=== PATIENT | male | born 1990 | race African-American/Black ===

== ENCOUNTER 2023-04-15 17:50 | Observation (INO) | payer OTHER ==
[2023-04-15 18:06] VITALS: BMI 50.8
[2023-04-15 19:33] LABS: BASO % 0.3 % (0-2.0); EOS % 2.5 % (0-4.5); HEMATOCRIT 46.4 % (35.4-49); HEMOGLOBIN 15.4 GM/dL (11.7-16.9); MCH 29.5 pg (25.7-33.7); MCHC 33.3 g/dl (32.0-35.9); MEAN CELL VOLUME 88.6 fl (80-96); MEAN PLT VOLUME 10.1 fl (7.5-11.1); NEUT % 66.2 % (42.8-82.8); PLATELET COUNT 273 10^3/uL (134-434); RBC 5.24 M/mm3 (4.00-5.60); RDW 13.1 % (11.9-15.9); WHITE BLOOD COUNT 6.5 K/mm3 (4.0-10.0)
[2023-04-15 19:45] LABS: INR 1.16 (0.83-1.09); PROTHROMBIN TIME (PATIENT) 13.4 SEC (9.7-13.0)
[2023-04-15 19:47] LABS: ACTIVATED PTT 34.7 SECONDS (25.2-36.5)
[2023-04-15 19:55] LABS: POTASSIUM 4.1 mmol/L (3.5-5.1)
[2023-04-15 19:57] LABS: CALCIUM 8.9 mg/dL (8.5-10.1)
[2023-04-15 19:58] LABS: ALBUMIN 3.8 g/dl (3.4-5.0)
[2023-04-15 20:01] LABS: CREATININE 0.9 mg/dL (0.55-1.3)
[2023-04-15 20:02] LABS: TOT PROT 7.6 g/dl (6.4-8.2)
[2023-04-15 20:03] LABS: BILIRUBIN,TOTAL 0.5 mg/dL (0.2-1)
[2023-04-15] MEDS ORDERED: ONDANSETRON 4 MG/2 ML VIAL IVPUSH ONE (20:05)
[2023-04-15] MEDS ORDERED: FAMOTIDINE 20 MG/50 ML IVPB 20 MG/50 ML MG IVPB ONE ×2 (20:05→22:29)
[2023-04-15] MEDS ORDERED: PANTOPRAZOLE SODIUM 40 MG VIAL IVPUSH ONE (20:06)
[2023-04-15] MEDS ORDERED: MAG HYDROX/AL HYDROX/SIMETH 30 ML UNIT-DOSE CUP PO ONE (20:06)
[2023-04-15] MEDS ORDERED: SUCRALFATE 1 GM/10 ML UNIT DOSE CUPS PO ONE (20:06)
[2023-04-15] MEDS ORDERED: LACTATED RINGERS SOLUTION 1000 ML INFUS.BAG IV ONE (20:36)
[2023-04-15 20:55] LABS: EPI CELLS >36 /uL (0-25.1); HYALINE CASTS 15 /uL (0-3.1); PH,URINE 5.5 (5.0-8.0); URINE APPEARANCE CLEAR; URINE BACTERIA 88 /uL (0-1359); URINE BILIRUBIN NEGATIVE (NEGATIVE); URINE COLOR DK YELLOW; URINE GLUCOSE (UA) NEGATIVE (NEGATIVE); URINE KETONE 1+ (NEGATIVE); URINE LEUK ESTERASE 1+ (NEGATIVE); URINE NITRITE NEGATIVE (NEGATIVE); URINE PROTEIN 2+ (NEGATIVE); URINE RBC 21 /uL (0-23.9); URINE WBC 456 /uL (0-25.8)
[2023-04-15 21:19] LABS: URINE CRYSTALS FEW /hpf
[2023-04-15] MEDS ORDERED: ONDANSETRON 4 MG/2 ML VIAL ONE (22:28)
[2023-04-15] MEDS ORDERED: PANTOPRAZOLE SODIUM 40 MG VIAL ONE (22:34)
[2023-04-15] MEDS ORDERED: MAG HYDROX/AL HYDROX/SIMETH 30 ML UNIT-DOSE CUP ONE (22:34)
[2023-04-15] MEDS ORDERED: SUCRALFATE 1 GM TABLET (FP) ONE (22:34)
[2023-04-16] MEDS ORDERED: ACETAMINOPHEN 1000 MG/100 ML BAG IVPB ONE (02:03)
[2023-04-16] MEDS ORDERED: ACETAMINOPHEN INJECTION 100 ML IVPB ONE (02:09)
[2023-04-16] MEDS ORDERED: METOCLOPRAMIDE HCL INJECTION 10 MG/2 ML VIAL IVPUSH ONE (03:37)
[2023-04-16] MEDS ORDERED: MAG HYDROX/AL HYDROX/SIMETH 30 ML UNIT-DOSE CUP PO ONE (03:37)
[2023-04-16] MEDS ORDERED: morphine CARPU-JECT 4 MG/1 ML DISP.SYRIN IVPUSH ONE (03:38)
[2023-04-16] MEDS ORDERED: METOCLOPRAMIDE HCL INJECTION 10 MG/2 ML VIAL ONE (05:30)
[2023-04-16] MEDS ORDERED: morphine SULFATE 4 MG/ML VIAL ONE (05:30)
[2023-04-16] MEDS ORDERED: KETOROLAC TROMETHAMINE 15 MG/ML VIAL IVPUSH PRN (08:24)
[2023-04-16] MEDS ORDERED: LACTATED RINGERS SOLUTION 1,000 ML IV SCH (08:30)
[2023-04-16] MEDS ORDERED: ACETAMINOPHEN 1000 MG/100 ML BAG IVPB PRN ×2 (08:31→09:22)
[2023-04-16] MEDS ORDERED: ONDANSETRON 4 MG/2 ML VIAL IVPUSH PRN (08:32)
[2023-04-16] MEDS ORDERED: KETOROLAC TROMETHAMINE 15 MG/ML VIAL ONE (09:13)
[2023-04-16] MEDS ORDERED: PANTOPRAZOLE SODIUM 40 MG VIAL ONE (09:13)
[2023-04-16] MEDS ORDERED: PANTOPRAZOLE SODIUM 40 MG VIAL IVPUSH SCH (10:00)
[2023-04-16] MEDS ORDERED: ENOXAPARIN NA (PORCINE) 40 MG/0.4 ML DISP.SYRIN SQ SCH (10:00)
[2023-04-16] MEDS ORDERED: LACTATED RINGERS SOLUTION 1,000 ML/1,000 ML INFUS.BAG IV SCH (10:30)
[2023-04-16 12:12] LABS: URINE APPEARANCE CLEAR; URINE BILIRUBIN SMALL (NEGATIVE); URINE COLOR DK YELLOW; URINE GLUCOSE (UA) NEGATIVE (NEGATIVE)
[2023-04-16 12:13] LABS: PH,URINE 5.5 (5.0-8.0); URINE KETONE TRACE (NEGATIVE); URINE LEUK ESTERASE NEGATIVE (NEGATIVE); URINE NITRITE NEGATIVE (NEGATIVE); URINE PROTEIN 1+ (NEGATIVE)
[2023-04-16] MEDS ORDERED: POLYETHYLENE GLYCOL 3350 255 GM BTL PO ONE (21:08)
[2023-04-16] MEDS ORDERED: SIMETHICONE 40 MG/0.6 ML BOTTLE PO PRN (21:59)
[2023-04-16] MEDS: PANTOPRAZOLE SODIUM 40 MG VIAL IVPUSH SCH (22:07)
[2023-04-17 08:45] LABS: METHADONE, UR NEGATIVE (NEGATIVE); PHENCYCLIDINE,URINE NEGATIVE (NEGATIVE); URINE BARBITURATES NEGATIVE (NEGATIVE)
[2023-04-17 08:46] LABS: URINE BENZODIAZEPINES NEGATIVE (NEGATIVE)
[2023-04-17 08:47] LABS: COCAINE, UR NEGATIVE (NEGATIVE); OPIATES, URI POSITIVE (NEGATIVE); URINE AMPHETAMINES NEGATIVE (NEGATIVE)
[2023-04-17] MEDS: PANTOPRAZOLE SODIUM 40 MG VIAL IVPUSH SCH (09:33)
[2023-04-17 10:11] LABS: HEMATOCRIT 42.4 % (35.4-49); HEMOGLOBIN 14.2 GM/dL (11.7-16.9); MCH 29.6 pg (25.7-33.7); MCHC 33.5 g/dl (32.0-35.9); MEAN CELL VOLUME 88.4 fl (80-96); MEAN PLT VOLUME 10.4 fl (7.5-11.1); PLATELET COUNT 236 10^3/uL (134-434); RDW 12.8 % (11.9-15.9); WHITE BLOOD COUNT 5.5 K/mm3 (4.0-10.0)
[2023-04-17 10:12] LABS: INR 1.17 (0.83-1.09); PROTHROMBIN TIME (PATIENT) 13.6 SEC (9.7-13.0)
[2023-04-17 10:13] LABS: BASO % 0.5 % (0-2.0); EOS % 4.7 % (0-4.5); HEMATOCRIT 42.4 % (35.4-49); HEMOGLOBIN 14.3 GM/dL (11.7-16.9); LYMPH % 31.4 % (8-40); MCH 29.9 pg (25.7-33.7); MCHC 33.7 g/dl (32.0-35.9); MEAN CELL VOLUME 88.6 fl (80-96); MEAN PLT VOLUME 10.4 fl (7.5-11.1); NEUT % 50.4 % (42.8-82.8); PLATELET COUNT 243 10^3/uL (134-434); RBC 4.78 M/mm3 (4.00-5.60); RDW 13.3 % (11.9-15.9); WHITE BLOOD COUNT 5.5 K/mm3 (4.0-10.0)
[2023-04-17] MEDS ORDERED: MIDAZOLAM HCL 2 MG/2 ML SINGLE DOSE VIAL ONE (10:45)
[2023-04-17] MEDS ORDERED: ALBUTEROL SO4 HFA INHALER IH ONE (10:46)
[2023-04-17] MEDS ORDERED: FENTANYL CITRATE/PF 50 MCG/ML VIAL ONE (10:48)
[2023-04-17 10:57] LABS: POTASSIUM 3.6 mmol/L (3.5-5.1)
[2023-04-17 11:07] LABS: ALBUMIN 3.5 g/dl (3.4-5.0)
[2023-04-17 11:08] LABS: BLOOD UREA NITROGEN 6.7 mg/dL (7-18)
[2023-04-17 11:10] LABS: CREATININE 0.8 mg/dL (0.55-1.3)
[2023-04-17 11:12] LABS: BILIRUBIN,TOTAL 0.9 mg/dL (0.2-1); TOT PROT 7.2 g/dl (6.4-8.2)
[2023-04-17] MEDS ORDERED: MESALAMINE 800 MG TABLET.DR PO SCH (14:45)
[2023-04-17] MEDS ORDERED: MESALAMINE 1000 MG/SUPP.RECT SUPP PR SCH (14:45)
[2023-04-17 15:42] VITALS: BP 131/80; PULSE 74; RESP 18; TEMP 97.7
[2023-04-18] MEDS ORDERED: PANTOPRAZOLE 40 MG TABLET PO SCH (10:00)
[2023-04-22 16:08] LABS: ATYPICAL pANCA <1:20 titer (Neg:<1:20)
== END 2023-04-17 17:29 | disposition home or self-care (01) ==
LOC: JER 17:50 → UNDOADMOB 04-16 05:03 → JERBED 04-16 05:03 → OBSVTOIN 04-16 08:24 → INTOOBSV 04-16 08:24 → JERBED 04-16 10:33 → J7W 04-16 19:57
PROVIDERS: ADMIT Internal Medicine; ATTEND Internal Medicine
PROC: 0DDB8ZX Extraction of Ileum, Via Natural or Artificial Opening Endoscopic, Diagnostic (ICD-10-PCS; principal; 2023-04-16)
PROC: 3E033NZ Introduction of Analgesics, Hypnotics, Sedatives into Peripheral Vein, Percutaneous Approach (ICD-10-PCS; 2023-04-16)
PROC: 3E033NZ Introduction of Analgesics, Hypnotics, Sedatives into Peripheral Vein, Percutaneous Approach (ICD-10-PCS; 2023-04-16)
PROC: 3E0337Z Introduction of Electrolytic and Water Balance Substance into Peripheral Vein, Percutaneous Approach (ICD-10-PCS; 2023-04-16)
PROC: 3E033GC Introduction of Other Therapeutic Substance into Peripheral Vein, Percutaneous Approach (ICD-10-PCS; 2023-04-16)
DX: G47.33 Obstructive sleep apnea (adult) (pediatric) (principal); J45.909 Unspecified asthma, uncomplicated; R11.2 Nausea with vomiting, unspecified; H18.609 Keratoconus, unspecified, unspecified eye; Z87.891 Personal history of nicotine dependence; Z91.018 Allergy to other foods; Z91.011 Allergy to milk products
CPT/HCPCS: 36415; 74177-TC; 80053; 80307; 81003; 82272; 83036; 83690; 85025; 85027; 85610; 85651; 85730; 86140; 86256; 86671; 87045; 87046; 87086; 87205; 87209; 87324; 87340; 87449; 88305-TC; 93005; 93010; 96361; 96365; 96367; 96375; 96376; 99285-25; G0378; Q9967